=== PATIENT | male | born 1960 | race Caucasian/White ===

== ENCOUNTER 2019-04-06 12:55 | Emergency (ER) | payer BC ==
[2019-04-06] MEDS ORDERED: ASPIRIN 81 MG CHEWABLE TABLET PO ONE (13:05)
[2019-04-06] MEDS ORDERED: FUROSEMIDE IV 20MG/2ML VIAL IVP ONE (13:09)
[2019-04-06] MEDS ORDERED: IPRATROPIUM/ALBUTEROL (0.5MG/3MG) NEB INH ONE (13:09)
--- NOTE | 2019-04-06 13:25 | Emergency Department Record ---
History of Present Illness - General Chief Complaint: Shortness of breath Stated Complaint: RENATA /AFIB Time Seen by Provider: 04/06/19 13:05 Source: Patient, RN notes reviewed Mode of Arrival: Ambulatory - History of Present Illness Initial Comments: sudden episode of dyspnea at 11 AM today and no cough or congestion and he sttes he is in atrial fib and going for a conversion next week at [facility] with [facility]. Patient stopped smoking 4 years ago when diagnosed with lung cancer and one lobe removed from his lung. Patient denies chest pain and he breaths better sitting up. Patient had a heart cath 1 month ago at [facility] and arteries and stents look good and his last stents were placed 3 years ago. Patient states he had resp arrest before because of CHF and had lots of retained fluid Onset/Timin -: Hour(s) - Related Data Home Medications Medication Instructions Recorded Confirmed Last Taken Apixaban [Eliquis] 5 mg PO DAILY 04/06/19 04/06/19 Unknown Aspirin [Aspir-Low] 81 mg PO DAILY 04/06/19 04/06/19 Unknown Furosemide [Lasix] 20 mg PO DAILY 04/06/19 04/06/19 Unknown Lisinopril 2.5 mg PO DAILY 04/06/19 04/06/19 Unknown Pantoprazole Sodium [Protonix] 20 mg PO DAILY 04/06/19 04/06/19 Unknown Sotalol HCl [Sotalol] 80 mg PO DAILY 04/06/19 04/06/19 Unknown Allergies Allergy/AdvReac Type Severity Reaction Status Date / Time No Known Drug Allergies Allergy Verified 04/06/19 13:15 Travel Screening - Travel/Exposure Within Last 30 Days Have you traveled within the last 30 days?: No Review of Systems Reviewed: No additional complaints except as noted below Constitutional: Reports: As per HPI. Denies: Chills, Fever, Malaise, Night sweats, Weakness, Weight change Eyes: Reports: As per HPI. Denies: Eye discharge, Eye pain, Photophobia, Vision change ENT: Reports: As per HPI. Denies: Congestion, Dental pain, Ear pain, Epistaxis, Hearing loss, Throat pain Respiratory: Reports: As per HPI, Dyspnea, Other. Denies: Cough, Hemoptysis, Stridor, Wheezes Cardiovascular: Reports: As per HPI. Denies: Arrhythmia, Chest pain, Dyspnea on exertion, Edema, Murmurs, Orthopnea, Palpitations, Paroxysmal nocturnal dyspnea, Rheumatic Fever, Syncope Endocrine: Reports: As per HPI. Denies: Fatigue, Heat or cold intolerance, Polydipsia, Polyuria Gastrointestinal: Reports: As per HPI. Denies: Abdominal pain, Constipation, Diarrhea, Hematemesis, Hematochezia, Melena, Nausea, Vomiting Genitourinary: Reports: As per HPI. Denies: Dysuria, Frequency, Hematuria, Incontinence, Retention, Testicular pain, Testicular mass, Urgency Musculoskeletal: Reports: As per HPI. Denies: Arthralgia, Back pain, Gout, Joint swelling, Myalgia, Neck pain Skin: Reports: As per HPI. Denies: Bruising, Change in color, Change in hair/nails, Lesions, Pruritus, Rash Neurological: Reports: As per HPI. Denies: Abnormal gait, Confusion, Headache, Numbness, Paresthesias, Seizure, Tingling, Tremors, Vertigo, Weakness Psychiatric: Reports: As per HPI. Denies: Anxiety, Auditory hallucinations, Depression, Homicidal thoughts, Suicidal thoughts, Visual hallucinations Hematological/Lymphatic: Reports: As per HPI. Denies: Anemia, Blood Clots, Easy bleeding, Easy bruising, Swollen glands Past Medical History - SOCIAL HISTORY Smoking Status: Former smoker Alcohol Use: None Drug Use: None - RESPIRATORY Hx Respiratory Disorders: No - CARDIOVASCULAR Hx Cardio Disorders: Yes Hx Irregular Heartbeat: Yes (a fib) Comment:: heart stents x 2 - NEURO Hx Neuro Disorders: No - GI Hx GI Disorders: No - Hx Genitourinary Disorders: No - ENDOCRINE Hx Endocrine Disorders: No - MUSCULOSKELETAL Hx Musculoskeletal Disorders: No - PSYCH Hx Psych Problems: No - HEMATOLOGY/ONCOLOGY Hx Hematology/Oncology Disorders: No Family Medical History Any Significant Family History?: No Physical Exam - General General Appearance: Alert, Oriented x3, Cooperative, No acute distress - Head Head exam: Normal inspection - Eye Eye exam: Normal appearance, PERRL Pupils: Normal accommodation - ENT ENT exam: Normal exam, Mucous membranes moist, Normal external ear exam, Normal orophraynx, TM's normal bilaterally Ear exam: Normal external inspection. negative: External canal tenderness Nasal Exam: Normal inspection. negative: Discharge, Sinus tenderness Mouth exam: Normal external inspection, Tongue normal Teeth exam: Normal inspection. negative: Dental caries Throat exam: Normal inspection. negative: Tonsillar erythema, Tonsillar exudate - Neck Neck exam: Normal inspection, Full ROM. negative: Tenderness - Respiratory Respiratory exam: Rales. negative: Respiratory distress - Cardiovascular Cardiovascular Exam: Regular rate, Normal rhythm, Normal heart sounds - GI/Abdominal GI/Abdominal exam: Soft, Normal bowel sounds. negative: Tenderness - Rectal Rectal exam: Deferred - exam: Deferred - Extremities Extremities exam: Normal inspection, Full ROM, Normal capillary refill. negative: Tenderness - Back Back exam: Reports: Normal inspection, Full ROM. Denies: Muscle spasm, Rash noted, Tenderness - Neurological Neurological exam: Alert, Normal gait, Oriented X3, Reflexes normal - Psychiatric Psychiatric exam: Normal affect, Normal mood - Skin Skin exam: Dry, Intact, Normal color, Warm Course Vital Signs 04/06/19 12:59 Pulse Rate 92 H Respiratory 22 Rate Blood Pressure 138/123 Pulse Ox 82 L - Reevaluation(s) Reevaluation #1: patient urinated 1100 ml of urine and feels better 04/06/19 17:15 Reevaluation #2: discussed case with Dr Santos and he recommended increase lasix to 40 mg per day and follow up with Dr langford next. 04/06/19 17:57 Medical Decision Making - Data Complexity MDM Data: Labs Ordered and/or Reviewed, X-Ray Ordered and/or Reviewed (CTA neg for a PE but some enlarged lymph nodes and granulomatosis disease,radiology recommended PET scan and CT to rule out neoplasm), EKG Ordered and/or Reviewed - Lab Data Result diagrams: 04/06/19 13:50 04/06/19 13:50 Disposition Clinical Impression: Dyspnea Qualifiers: Dyspnea type: acute respiratory distress Qualified Code(s): R06.03 - Acute respiratory distress COPD (chronic obstructive pulmonary disease) Qualifiers: COPD type: unspecified COPD Qualified Code(s): J44.9 - Chronic obstructive pulmonary disease, unspecified CHF (congestive heart failure) Qualifiers: Heart failure type: unspecified Heart failure chronicity: acute on chronic Qualified Code(s): I50.9 - Heart failure, unspecified Disposition: Home, Self-Care Condition: (1) Good Instructions: Dyspnea (ED), Heart Failure (ED) Additional Instructions: follow up with Dr Langford next week and Dr Murillo next week increase lasix to twice a day 20 mg BID Forms: Patient Portal Access Time of Disposition: 18:02 Quality - Quality Measures Quality Measures: N/A - Blood Pressure Screening Does Patient Have Any of the Following: No, Active Dx of HTN Blood Pressure Classification: Hypertensive Reading Systolic Measurement: 138 Diastolic Measurement: 123 Screening for High Blood Pressure: Patient Exclusion, Hx of HTN [[id number]]
[2019-04-06 13:58] LABS: ABSOLUTE NEUTROPHIL COUNT 4.18; BASO % 0.3 % (0-6); EOS % 2.4 % (0-6); GRAN % 56.9 % (47-80); HEMATOCRIT 50.3 % (42.0-52.0); HEMOGLOBIN 17.1 gm/dl (14.0-18.0); LYMPH % 27.5 % (16-45); MEAN CELL VOLUME 99.2 fl (81-97); MEAN CORPUSCULAR HEMOGLOBIN 33.7 pg (27-33); MEAN PLATELET VOLUME 11.8 fl (7.4-10.4); MONO % 12.9 % (0-9); PLATELET COUNT 182 K/uL (130-400); RED BLOOD COUNT 5.07 M/uL (4.40-5.70); RED CELL DISTRIBUTION WIDTH 13.3 % (11.5-14.5); WHITE BLOOD COUNT W/O DIFF 7.4 K/uL (4.2-12.2)
[2019-04-06 14:07] LABS: BLOOD UREA NITROGEN 12 mg/dL (6-20); EST GLOMERULAR FILTRATION RATE > 60 mL/min
[2019-04-06 14:10] LABS: GLUCOSE,RANDOM 136 mg/dL (74-109)
[2019-04-06 14:18] LABS: INR 1.2; PARTIAL THROMBOPLASTIN TIME 27.5 SECONDS (24.5-39.1); PROTHROMBIN TIME (PATIENT) 11.8 SECONDS (9.5-12.1)
--- NOTE | 2019-04-08 15:40 | RADIOLOGY REPORT ---
DATE: 04/06/2019. EXAM: SINGLE AP PORTABLE VIEW OF THE CHEST. HISTORY: SHORTNESS OF BREATH. HISTORY OF LEFT THORACOTOMY. HISTORY OF LUNG CANCER. TECHNIQUE: Single AP portable view of the chest was provided. COMPARISON: None. FINDINGS: Cardiac silhouette is magnified. There is an elevated left hemidiaphragm suggesting a subpulmonic effusion. The left posterior lower lobe subsegmental atelectasis and/or infiltrate is suspected. Postoperative changes of the left hilum are identified. No pneumothorax is noted. IMPRESSION: ELEVATED LEFT HEMIDIAPHRAGM IS NOTED SUGGESTING A SUBPULMONIC LEFT-SIDED PLEURAL EFFUSION. LEFT LOWER LOBE PASSIVE ATELECTASIS AND/OR INFILTRATE IS NOTED. NO PNEUMOTHORAX IS NOTED. FOLLOW-UP PA AND LATERAL VIEWS OF THE CHEST CAN BE OBTAINED UNTIL RESOLUTION OF FINDINGS. Job Number: [id number] [facility]
--- NOTE | 2019-04-08 17:04 | CT ANGIOGRAM REPORT ---
DATE: 04/06/2019. EXAM: CT ANGIOGRAM OF THE CHEST. HISTORY: THE PATIENT HAS AN ELEVATED D-DIMER. TECHNIQUE: Serial axial CT scan of the chest was performed at 1.25 mm intervals from the thoracic inlet to the dome of the diaphragm following the intravenous administration of 100 mL of Omnipaque 350. COMPARISON: No comparison CT scans are available. FINDINGS: The thoracic inlet demonstrates a 1.2 cm intraosseous lymph node within the right paratracheal region. Given the size, neoplastic etiology cannot be excluded. Head CT scan can be obtained for further evaluation. The lung windows demonstrate ground glass infiltrates within the right posterior lower lobe. This finding may represent developing pneumonia. Follow-up PA and lateral views of the chest can be obtained until resolution of findings. Within the peripheral aspect of the right upper lobe, there is a conglomeration of densities measuring approximately 2.5 cm x 9.9 mm. This finding may represent a granulomatous process. However neoplastic etiology cannot be excluded. If there is further clinical concern, then a P.E.T. CT scan can be obtained for further evaluation. Postoperative changes of the left lower lobe are identified. There is elevation of the left hemidiaphragm with mild left posterior lower lobe pleural thickening. There is no CT evidence of a filling defect within the primary or secondary pulmonary arterial tree to suggest a pulmonary embolus. Cardiomegaly is noted. The contour and caliber of the thoracic aorta is within normal limits. There is insufficient contrast within the thoracic aortic lumen. There is a 1.8 cm in short-axis diameter lymph node within the right hilum. Given its size, neoplastic etiology cannot be excluded. P.E.T. CT scan can be obtained for further evaluation. Axial images through the upper abdomen demonstrate the visualized liver, spleen, and adrenal glands to be unremarkable. Dependent gallstone is noted within the visualized gallbladder without CT evidence of cholecystitis. Bone windows demonstrate postoperative changes of the left posterolateral ribs. IMPRESSION: 1. NO CT EVIDENCE OF A PULMONARY EMBOLUS. 2. GROUND GLASS INFILTRATES WITHIN THE RIGHT LOWER LOBE SUGGESTING DEVELOPING PNEUMONIA. FOLLOW-UP PA AND LATERAL VIEWS OF THE CHEST CAN BE OBTAINED UNTIL RESOLUTION OF FINDINGS. 3. POSTOPERATIVE CHANGES OF THE LEFT LOWER LOBE ARE NOTED DISCUSSED ABOVE. 4. PROMINENT RIGHT HILAR AND RIGHT PARATRACHEAL LYMPH NODE IS NOTED DISCUSSED. GIVEN THEIR SIZE, NEOPLASTIC ETIOLOGY CANNOT BE EXCLUDED. P.E.T. CT SCAN CAN BE OBTAINED FOR FURTHER EVALUATION. 5. CLUSTERING OF NODULAR DENSITIES WITHIN THE RIGHT UPPER LOBE IS NOTED DISCUSSED ABOVE WITH SMALL, PUNCTATE CALCIFICATIONS. DIFFERENTIAL CONSIDERATIONS INCLUDE GRANULOMATOUS DISEASE VERSUS NEOPLASTIC PROCESS. P.E.T. CT SCAN CAN BE OBTAINED FOR FURTHER EVALUATION. Job Number: [id number] [facility]
== END 2019-04-06 18:34 | disposition home or self-care (01) ==
LOC: ER 12:55
DX: R06.03 Acute respiratory distress (principal); J44.9 Chronic obstructive pulmonary disease, unspecified; I50.9 Heart failure, unspecified; Z87.891 Personal history of nicotine dependence; Z85.118 Personal history of other malignant neoplasm of bronchus and lung; Z79.01 Long term (current) use of anticoagulants; I48.91 Unspecified atrial fibrillation
CPT/HCPCS: 71045; 71275; 80048; 83880; 84484; 85025; 85379; 85610; 85730; 93005; 93010; 94640; 96374; 99284; J1940